=== PATIENT | male | born 1985 | race Hispanic/Latino ===

== ENCOUNTER 2021-08-31 18:27 | Emergency (ER) | payer OTHER ==
[~2021-08-31] VITALS: Ht 177.8 cm; Wt 108.9 kg
[2021-08-31] MEDS ORDERED: AZITHROMYCIN250 MG PO (20:02)
[2021-08-31] MEDS ORDERED: PREDNISONE20 MG PO (20:02)
[2021-08-31] MEDS ORDERED: VENTOLIN HFA18 GM INH (20:02)
== END 2021-08-31 20:27 | disposition home or self-care (01) ==
LOC: FSED 19:02
DX: R05.9 Cough, unspecified (principal); J06.9 Acute upper respiratory infection, unspecified; I10 Essential (primary) hypertension; R51.9 Headache, unspecified
CPT/HCPCS: 83518; 87400; 99283